=== PATIENT | female | born 1960 | race Caucasian/White ===

== ENCOUNTER 2017-12-05 01:35 | Emergency (ER) | payer OTHER, MEDICAID ==
--- NOTE | 2017-12-05 01:52 | EDM.PDOC ---
ED HPI GENERAL MEDICAL PROBLEM - General Chief Complaint: Upper Extremity Injury/Pain Stated Complaint: Fall/Right Wrist Pain Time Seen by Provider: 12/05/17 01:45 Source of Information: Reports: Patient, Family History Limitations: Reports: No Limitations - History of Present Illness INITIAL COMMENTS - FREE TEXT/NARRATIVE: Patient comes in tonight with a family member after she been drinking at a local establishment tonight when she was leaving general fall and on the ice landing on her right wrist causing pain right away. Patient came to the emergency department for further evaluation. She states that her arm/wrist is not swollen however it's very painful to move it and her fingers are cold. Patient states admits she has had 3 beers and 3-4 shots over the course of the evening. Denies hitting her head, dizziness, lightheaded, or n/v. Onset: Sudden Onset Time: 01:00 Duration: Hour(s): Quality: Reports: Throbbing Improves with: Reports: Immobilization Worsens with: Reports: Movement Associated Symptoms: Reports: No Other Symptoms - Related Data Allergies Allergy/AdvReac Type Severity Reaction Status Date / Time No Known Allergies Allergy Verified 06/15/16 08:01 Home Meds: Home Meds Albuterol [IJD: Ventolin HFA] 2 puff TID 06/15/16 [History] Ipratropium [Atrovent HFA] 2 puff TID 06/15/16 [History] Past Medical History Respiratory History: Reports: COPD - Past Surgical History Musculoskeletal Surgical History: Reports: Other (See Below) Social & Family History - Tobacco Use Smoking Status *Q: Current Every Day Smoker Years of Tobacco use: 40 Packs/Tins Daily: 1 - Alcohol Use Days Per Week of Alcohol Use: 4 Number of Drinks Per Day: 6 Total Drinks Per Week: 24 - Recreational Drug Use Recreational Drug Use: Yes Drug Use in Last 12 Months: No Recreational Drug Type: Reports: Cocaine Review of Systems - Review of Systems Review Of Systems: See Below Constitutional: Reports: No Symptoms Eyes: Reports: No Symptoms Respiratory: Reports: No Symptoms Cardiovascular: Reports: No Symptoms Skin: Reports: No Symptoms Neurological: Reports: No Symptoms Psychiatric: Reports: No Symptoms ED EXAM, GENERAL - Physical Exam Exam: See Below Exam Limited By: Intoxication General Appearance: Alert, WD/WN, No Apparent Distress Head: Atraumatic, Normocephalic Respiratory/Chest: No Respiratory Distress, Lungs Clear Cardiovascular: Normal Peripheral Pulses, No Edema, No Gallop Extremities: Normal Inspection, Other (pain right wrist limited ROM due to pain. NO swelling, deformity, or redness noted. CMS intact) Skin Exam: Warm, Dry, Intact, Normal Color, No Rash Course - Orders/Labs/Meds Orders: Active Orders 24 hr Category Date Time Status Wrist Comp Min 3V Rt [CR] Stat Exams 12/05/17 01:47 Taken - Re-Assessments/Exams Free Text/Narrative Re-Assessment/Exam: 12/05/17 02:34 x-ray reviewed no acute fracture noted. Will place pt in a velcro wrist splint for comfort measures. Departure - Departure Time of Disposition: 02:33 Disposition: Home, Self-Care 01 Condition: Good Clinical Impression: Right wrist sprain Qualifiers: Encounter type: initial encounter Qualified Code(s): S63.501A - Unspecified sprain of right wrist, initial encounter - Discharge Information Instructions: Cast or Splint Care, [id number] Forms: ED Department Discharge - My Orders Last 24 Hours: My Active Orders 12/05/17 01:47 Wrist Comp Min 3V Rt [CR] Stat - Assessment/Plan Last 24 Hours: My Active Orders 12/05/17 01:47 Wrist Comp Min 3V Rt [CR] Stat
[2017-12-05 05:33] VITALS: BP 140/94
== END 2017-12-05 02:49 | disposition home or self-care (01) ==
LOC: VM.ED 01:35
DX: S63.501A Unspecified sprain of right wrist, initial encounter (principal); J44.9 Chronic obstructive pulmonary disease, unspecified; F17.210 Nicotine dependence, cigarettes, uncomplicated; W00.9XXA Unspecified fall due to ice and snow, initial encounter
CPT/HCPCS: 73110-RT; 99283